=== PATIENT | female | born 1965 | race Caucasian/White ===

== ENCOUNTER 2017-05-22 03:45 | Emergency (ER) | payer BC ==
[2017-05-22] MEDS ORDERED: Pepcid 20 MG VIAL IV ONE ×2 (04:08→04:13)
[2017-05-22] MEDS ORDERED: Sodium Chloride 0.9% 1000 ML 1,000 ML IV STA (04:08)
[2017-05-22] MEDS ORDERED: Zofran 4 MG/2 ML VIAL IV ONE (04:08)
[2017-05-22] MEDS ORDERED: TORAdol 30 mg Injection IV ONE (04:08)
[2017-05-22] MEDS ORDERED: TORAdol 30 mg Injection ONE (04:13)
[2017-05-22] MEDS ORDERED: Sodium Chloride 0.9% 1000 ML 1,000 ML ONE (04:13)
[2017-05-22] MEDS ORDERED: Zofran 4 MG/2 ML VIAL ONE (04:13)
--- NOTE | 2017-05-22 04:14 | ERPHSYRPT ---
- History of Present Illness Time Seen by Provider: 05/22/17 04:00 Historian: patient Exam Limitations: no limitations Patient Subjective Stated Complaint: PT REPORTS RIGHT SIDED ABD PAIN BEGINNING YESTERDAY-REPORTS INTERMITTANT FEVER ET NOT FEELING WELL FOR A WEEK-REPROTS DIARHEA YESTERDAY WITH NO OBVIOUS BLOOD-DENIES VOMITING BUT REPORTS NAUSEA Triage Nursing Assessment: PT PINK HOT ET [id number] TO ED RM WHILE HOLDING RIGHT LOWER ABD-ABD SOFT ET TENDER TO PALP-PT DENIES REBOUND TENDERNESS- BOWEL SOUNDS PRESENT Physician History: Pt was treated few days ago with PO steroids for Bronchitis, she developed RLQ abdominal pain,fever, nausea tonight, had diarrhea yesterday. She denies bloody or black stools, no urinary complaints, She denies chest pain, cough, vomiting, other complaints. Timing/Duration: yesterday Activities at Onset: none Quality: cramping Abdominal Pain Onset Location: RLQ Pain Radiation: no radiation Severity of Pain-Max: severe Severity of Pain-Current: severe Modifying Factors: Improves With: nothing Associated Symptoms: diarrhea, fever/chills Previous symptoms: no prior history Allergies/Adverse Reactions: No Known Drug Allergies Allergy (Unverified 05/22/17 04:05) Home Medications: No Reportable Medications [No Reported Medications] 05/22/17 [History] Hx Tetanus, Diphtheria Vaccination/Date Given: No Hx Influenza Vaccination/Date Given: No Hx Pneumococcal Vaccination/Date Given: No Immunizations Up to Date: Yes - Review of Systems Constitutional: Fever, Chills Abdominal/Gastrointestinal: Abdominal Pain, Nausea, Diarrhea All Other Systems: Reviewed and Negative - Past Medical History Pertinent Past Medical History: Yes - Past Surgical History Past Surgical History: Yes Neuro Surgical History: No Pertinent History Cardiac: No Pertinent History Respiratory: No Pertinent History Gastrointestinal: No Pertinent History Genitourinary: No Pertinent History Musculoskeletal: Orthopedic Surgery Female Surgical History: Other Other Surgical History: UTERINE ABLASION - Social History Smoking Status: Current every day smoker How long have you smoked: YRS Exposure to second hand smoke: Yes Drug Use: none Patient Lives Alone: No - Female History Hx Last Menstrual Period: ABLASION Hx Now: No - Nursing Vital Signs Nursing Vital Signs: Initial Vital Signs Temperature 101.2 F 05/22/17 03:56 Pulse Rate 129 H 05/22/17 03:56 Respiratory Rate 18 05/22/17 03:56 Blood Pressure 127/74 05/22/17 03:56 O2 Sat by Pulse Oximetry 96 05/22/17 03:56 Pain Scale Pain Intensity 2 - Physical Exam General Appearance: no apparent distress Eye Exam: eyes nml inspection Ears, Nose, Throat Exam: normal ENT inspection, pharynx normal Neck Exam: normal inspection, non-tender, supple Respiratory Exam: normal breath sounds, lungs clear, airway intact, No chest tenderness Cardiovascular Exam: regular rate/rhythm, normal heart sounds, normal peripheral pulses, No murmur Gastrointestinal/Abdomen Exam: soft, normal bowel sounds, tenderness (RLQ, moderate), No distention, No mass Back Exam: normal inspection, No CVA tenderness Extremity Exam: normal inspection Neurologic Exam: alert, oriented x 3, cooperative Skin Exam: normal color, warm, dry, No rash Lymphatic Exam: No adenopathy SpO2 Interpretation: normal SpO2: 96 Oxygen Delivery: Room Air - CT Exams Abdomen/Pelvis CT Interpretation: Negative Ordered Tests: Active Orders 24 hr Category Date Time Status IV Insertion STAT Care 05/22/17 04:08 Active ABDOMEN AND PELVIS W CONTRAST [CT] Stat Exams 05/22/17 04:09 Taken CBC W DIFF Stat Lab 05/22/17 04:21 Completed CMP Stat Lab 05/22/17 04:21 Completed CULTURE,URINE Stat Lab 05/22/17 04:21 Received HCG QUALITATIVE,SERUM Stat Lab 05/22/17 04:21 Completed LIPASE Stat Lab 05/22/17 04:21 Completed Lactic Acid Stat Lab 05/22/17 04:14 Completed Manual Differential NC Stat Lab 05/22/17 04:21 Completed UA W/ MICROSCOPIC Stat Lab 05/22/17 04:21 Completed Medication Summary Discontinued Medications Generic Name Dose Route Start Last Admin Trade Name Freq PRN Reason Stop Dose Admin Famotidine 20 mg 05/22/17 04:08 05/22/17 04:18 Pepcid 20 Mg Vial IV 05/22/17 04:09 20 mg STAT ONE Administration Famotidine Confirm 05/22/17 04:13 Pepcid 20 Mg Vial Administered 05/22/17 04:14 Dose 20 mg IV .STK-MED ONE Sodium Chloride 1,000 mls @ 999 mls/hr 05/22/17 04:08 05/22/17 04:15 Sodium Chloride 0.9% 1000 Ml IV 05/22/17 05:08 999 mls/hr .Q1H1M STA Administration Sodium Chloride Confirm 05/22/17 04:13 Sodium Chloride 0.9% 1000 Ml Administered 05/22/17 04:14 Dose 1,000 mls @ ud .ROUTE .STK-MED ONE Ceftriaxone Sodium/Dextrose 1 g in 50 mls @ 100 mls/hr 05/22/17 04:53 04:55 Rocephin 1 Gm-D5w 50 Ml Bag IV 05/22/17 05:22 100 mls/hr STAT STA Administration Ceftriaxone Sodium/Dextrose Confirm 05/22/17 04:52 Rocephin 1 Gm-D5w 50 Ml Bag Administered 05/22/17 04:53 Dose 1 g in 50 mls @ ud IV .STK-MED ONE Ketorolac Tromethamine 30 mg 05/22/17 04:08 05/22/17 04:19 Toradol 30 Mg Injection IV 05/22/17 04:09 30 mg STAT ONE Administration Ketorolac Tromethamine Confirm 05/22/17 04:13 Toradol 30 Mg Injection Administered 05/22/17 04:14 Dose 30 mg .ROUTE .STK-MED ONE Ondansetron HCl 4 mg 05/22/17 04:08 05/22/17 04:17 Zofran 4 Mg/2 Ml Vial IV 05/22/17 04:09 4 mg STAT ONE Administration Ondansetron HCl Confirm 05/22/17 04:13 Zofran 4 Mg/2 Ml Vial Administered 05/22/17 04:14 Dose 4 mg .ROUTE .STK-MED ONE Lab/Rad Data: Laboratory Result Diagrams 05/22/17 04:21 05/22/17 04:21 Laboratory Results 05/22/17 05/22/17 05/22/17 Range/Units 04:21 04:21 04:21 WBC (4.0-10.5) K/mm3 RBC (4.1-5.4) M/mm3 Hgb (12.0-16.0) gm/dl Hct (35-47) % MCV (78-100) fl MCH (26-32) pg MCHC (32-36) g/dl RDW (11.5-14.0) % Plt Count (150-450) K/mm3 MPV (6-9.5) fl Segmented Neutrophils (36.0-66.0) % Band Neutrophils (0.0-2.0) % Lymphocytes (Manual) (24-44) % Monocytes (Manual) (0.0-12.0) % Differential Comment Atypical Lymphocytes % Platelet Estimate (NORMAL) Sodium 134 L (136-145) mEq/L Potassium 3.8 (3.5-5.1) mEq/L Chloride 98 (98-107) mEq/L Carbon Dioxide 22.7 (21-32) mEq/L Anion Gap 17.1 H (5-15) MEQ/L BUN 8 L (9-20) mg/dL Creatinine 0.99 (0.55-1.30) mg/dl Estimated GFR > 60 ML/MIN Glucose 122 H (70-110) MG/DL Lactic Acid (0.4-2.0) Calcium 9.2 (8.5-10.1) mg/dL Total Bilirubin 0.60 (0.2-1.0) mg/dL AST 32 (15-37) U/L ALT 43 (12-78) U/L Alkaline Phosphatase 88 (46-116) U/L Serum Total Protein 7.7 (6.4-8.2) gm/dL Albumin 3.0 L (3.4-5.0) g/dL Lipase 82 (73-393) U/L Serum , Qual NEGATIVE (Negative) Ur Collection Type VOID Urine Color YELLOW (YELLOW) Urine Appearance HAZY (CLEAR) Urine pH 7.0 (5-6) Ur Specific [place] 1.005 (1.005-1.025) Urine Protein TRACE (Negative) Urine Ketones NEGATIVE (NEGATIVE) Urine Blood 250 (0-5) Vic/ul Urine Nitrite POSITIVE (NEGATIVE) Urine Bilirubin NEGATIVE (NEGATIVE) Urine Urobilinogen 1 (0-1) mg/dL Ur Leukocyte Esterase 2+ (NEGATIVE) Urine Microscopic RBC 10-15 (0-2) /HPF Urine Microscopic WBC 15-25 (0-5) /HPF Ur Epithelial Cells MODERATE (FEW) /HPF Urine Bacteria MANY (NEGATIVE) /HPF Urine Culture Reflexed YES (NO) Urine Glucose NEGATIVE (NEGATIVE) mg/dL Specimen Received 05/22/17 0415 05/22/17 05/22/17 Range/Units 04:21 04:14 WBC 19.3 H (4.0-10.5) K/mm3 RBC 4.75 (4.1-5.4) M/mm3 Hgb 14.2 (12.0-16.0) gm/dl Hct 42.0 (35-47) % MCV 88.4 (78-100) fl MCH 29.9 (26-32) pg MCHC 33.8 (32-36) g/dl RDW 13.9 (11.5-14.0) % Plt Count 263 (150-450) K/mm3 MPV 10.4 H (6-9.5) fl Segmented Neutrophils 81 H (36.0-66.0) % Band Neutrophils 4 H (0.0-2.0) % Lymphocytes (Manual) 6 L (24-44) % Monocytes (Manual) 6 (0.0-12.0) % Differential Comment NORMAL Atypical Lymphocytes 3 % Platelet Estimate NORMAL (NORMAL) Sodium (136-145) mEq/L Potassium (3.5-5.1) mEq/L Chloride (98-107) mEq/L Carbon Dioxide (21-32) mEq/L Anion Gap (5-15) MEQ/L BUN (9-20) mg/dL Creatinine (0.55-1.30) mg/dl Estimated GFR ML/MIN Glucose (70-110) MG/DL Lactic Acid 0.9 (0.4-2.0) Calcium (8.5-10.1) mg/dL Total Bilirubin (0.2-1.0) mg/dL AST (15-37) U/L ALT (12-78) U/L Alkaline Phosphatase (46-116) U/L Serum Total Protein (6.4-8.2) gm/dL Albumin (3.4-5.0) g/dL Lipase (73-393) U/L Serum , Qual (Negative) Ur Collection Type Urine Color (YELLOW) Urine Appearance (CLEAR) Urine pH (5-6) Ur Specific [place] (1.005-1.025) Urine Protein (Negative) Urine Ketones (NEGATIVE) Urine Blood (0-5) Vic/ul Urine Nitrite (NEGATIVE) Urine Bilirubin (NEGATIVE) Urine Urobilinogen (0-1) mg/dL Ur Leukocyte Esterase (NEGATIVE) Urine Microscopic RBC (0-2) /HPF Urine Microscopic WBC (0-5) /HPF Ur Epithelial Cells (FEW) /HPF Urine Bacteria (NEGATIVE) /HPF Urine Culture Reflexed (NO) Urine Glucose (NEGATIVE) mg/dL Specimen Received - Progress Progress: improved Progress Note: 05/22/17 06:01 Improved, afebrile, denies pain or nausea, feels better altogether. She was administered 1000mg Rocephin iv. Toradol and Zofran, NS 1000 ml. I discussed the results with her, and gave instructions, to rest x 2-3 days, drink plenty of fluids, and return if severe pain, vomiting, fever> 102 F! - Departure Time of Disposition: 06:02 Departure Disposition: Home Clinical Impression: Pyelonephritis Condition: Stable Critical Care Time: No Referrals: DOCTOR,NO FAMILY [Primary Care Provider] - Additional Instructions: Rest x 2-3 days, drink plenty of fluids, return if severe pain, vomiting, fever > 102F!
[2017-05-22 04:25] LABS: Hemoglobin 14.2 gm/dl (12.0-16.0); Mean Cell Volume 88.4 fl (78-100); Mean Corpuscular Hemoglobin 29.9 pg (26-32); Mean Corpuscular Hgb Concent. 33.8 g/dl (32-36); Mean Platelet Volume 10.4 fl (6-9.5); Platelet Count 263 K/mm3 (150-450); Red Blood Count 4.75 M/mm3 (4.1-5.4); Red Cell Distribution Width 13.9 % (11.5-14.0); White Blood Count 19.3 K/mm3 (4.0-10.5)
[2017-05-22 04:36] LABS: Appearance HAZY (CLEAR); Bilirubin NEGATIVE (NEGATIVE); Blood 250 Ery/ul (0-5); Glucose NEGATIVE (NEGATIVE); Ketones NEGATIVE (NEGATIVE); Leukocyte Esterase 2+ (NEGATIVE); Nitrite POSITIVE (NEGATIVE); Protein,Urine Dip TRACE (Negative); Specific Gravity 1.005 (1.005-1.025); Urobilinogen 1 mg/dL (0-1)
[2017-05-22 04:37] LABS: Bacteria MANY /HPF (NEGATIVE); Epithelial Cells MODERATE /HPF (FEW); WBC 15-25 /HPF (0-5)
[2017-05-22 04:47] LABS: ALKALINE PHOSPHATASE 88 U/L (46-116); ANION GAP 17.1 MEQ/L (5-15); BLOOD UREA NITROGEN 8 mg/dL (9-20); CHLORIDE 98 mEq/L (98-107); Calcium 9.2 mg/dL (8.5-10.1); Carbon Dioxide 22.7 mEq/L (21-32); Creatinine 1 0.99 mg/dl (0.55-1.30); EST GLOMERULAR FILTRATION RATE > 60 ML/MIN; Glucose 122 MG/DL (70-110); LIPASE 82 U/L (73-393); Potassium 3.8 mEq/L (3.5-5.1); SGOT/AST 32 U/L (15-37); SGPT/ALT 43 U/L (12-78); SODIUM 134 mEq/L (136-145); Total Protein 7.7 gm/dL (6.4-8.2)
[2017-05-22] MEDS ORDERED: ROCEPHIN 1 Gm-D5w 50 ml Bag** 1 G/50 ML IVPB IV ONE (04:52)
[2017-05-22] MEDS ORDERED: ROCEPHIN 1 Gm-D5w 50 ml Bag** 1 G/50 ML IVPB IV STA (04:53)
[2017-05-22 05:30] LABS: ATYPICAL LYMPHS 3 %; BAND 4 % (0.0-2.0); Lymphocytes 6 % (24-44); Monocyte 6 % (0.0-12.0); Neutrophils 81 % (36.0-66.0); Platelet Estimate NORMAL (NORMAL); Total Cells Counted 100
[2017-05-22 06:11] VITALS: BP 103/49; PULSE 91; O2SAT 95
--- NOTE | 2017-05-22 09:08 | XRAY ---
Indication: Right lower quadrant pain and nausea. Elevated WBC. Multiple contiguous axial images obtained through the abdomen and pelvis using 80 cc Isovue 370 contrast only. Comparison: None Lung bases demonstrates mild bibasilar dependent atelectasis. Heart is not enlarged. Noncontrasted stomach and bowel loops appear nonobstructed. Several mildly fluid distended small bowel loops with synchronous fluid leveling unchanged on delayed imaging either ileus versus enteritis. Normal appendix. No free fluid/air. Both kidneys enhance and excrete. Right mid kidney demonstrates 3.5 cm wedge-shaped focus of subtle hypoattenuation with mild perinephric stranding favoring focal pyelonephritis. Much smaller focus seen in the left mid kidney. No suspicious renal mass, perinephric fluid, hydronephrosis, or hydroureter. Gallbladder is contracted without gallstones. 1.5 cm right ovary cyst. 2.7 cm exophytic partially calcified uterine fibroid. Remaining liver, pancreas, spleen, adrenal glands, bladder, and aorta appear unremarkable. No pathologic retroperitoneal lymphadenopathy. Osseous structures intact with lumbosacral degenerative disc disease. Impression: 1. CT findings favoring bilateral pyelonephritis. 2. Several fluid distended small bowel loops with fluid leveling. Rule out ileus versus enteritis. 3. Incidental partially calcified uterine fibroid and dominant right ovary cyst. Pelvic sonogram may yield further information if clinically warranted. Comment: Preliminary interpretation was made by [facility]. Small bowel findings not reported and not felt to be critical. CTDI 18.15
== END 2017-05-22 06:15 | disposition home or self-care (01) ==
LOC: ED 03:45
DX: N12 Tubulo-interstitial nephritis, not specified as acute or chronic (principal); R10.31 Right lower quadrant pain; R50.9 Fever, unspecified; R11.0 Nausea; R19.7 Diarrhea, unspecified
CPT/HCPCS: 36000; 36415; 74177; 80053; 81000; 83605; 83690; 84703; 85025; 87077; 87086; 87186; 96360; 96374; 96375; 99285; J0696; J1885; J2405